=== PATIENT | female | born 1945 | race Caucasian/White ===

== ENCOUNTER → 2023-05-27 16:22 | Outpatient (REF) | payer MEDICARE, SELFPAY ==
[2023-05-27 16:04] LABS: PT 22.6 Sec (11.4-14.6)
== END ==
LOC: OIDL 16:22
PROVIDERS: ATTENDING PHYSICIAN Internal Medicine Hematology & Oncology
DX: D68.62 Lupus anticoagulant syndrome (principal)
CPT/HCPCS: 85610

== ENCOUNTER 2023-08-10 02:47 | Emergency (ER) | payer MEDICARE, SELFPAY ==
[2023-08-10 02:49] VITALS: BP 142/86; BMI 20.5
--- NOTE | 2023-08-10 03:05 | ED.GENMED ---
History of Present Illness
<RANDI Way - Last Filed: 08/10/23 06:10>
General
Chief Complaint: Abdominal Symptoms
Source: patient and family
Exam Limitations: none
Time Seen by Provider: 08/10/23 02:53
Travel History
Have you had any contact with someone who has COVID-19?: No
Do you have any symptoms of coronavirus? Fever > 100 degrees, chills, cough, shortness of breath, sore throat, loss of taste or smell, muscle aches, or headache?: No
History of Present Illness
History of Present Illness:
78 year old female with hx of stage 4 lung CA on hospice BIBA from home for LLQ abdominal pain that began around 1400 Saturday. Per daugther, pt has not had a BM in 2 weeks. 2.5 weeks ago pt had fecal impaction and was administered fleet enemas x2 by
hospice nurse with relief of impaction. At 2 PM Saturday pt woke up with severe abdominal pain. Hospice nurse attempted 2 fleet enemas. She probed the rectum with her finger and pt screamed in pain. Denies fevers/chills, nausea, vomiting. Daughter
called hospice doctor tawnya who states pt needs to go to the ER. Pt is on hospice and is on dilaudid. Daughter states pt is in the final process of dying. She is bed-bound. She is not eating and only and is spoon-fed water. Pt is on home O2, 6L.
Past History
<RANDI Way - Last Filed: 08/10/23 06:10>
Past History
ED Past Medical History: CAD, Cancer (Stage 4 Lung), GERD, HTN, Hypercholesterolemia, Other (Raynauds, Amaurosis fugax 2018, Hiatal hernia, Esophageal stricture with dilatation, Bullous pemphigoid, visual acuity in left eye 20/400), Other
(Osteopenia, pneumonia, rheumatoid arthritis) and Other (Lupus, antiphospholipid ab, irritable bowel, DJD, renal failure, hiatal hernia, cataracts); Negative Renal failure (CKD 3)
ED Past Surgical History: Cardiac (Stent x1, right Carotid stent), Tonsilectomy and Other (Carotid endarterectomy on R, carotid stent on R 2018, subclavian venous stent 2009)
Social History
Tobacco: Former smoker
Alcohol: None
Drug: None
Personal:
Living: alone
Employment: Retired
Family History
Family History: Other (Reviewed and noncontributory)
Review of Systems
<Molly Carlton [facility] - Last Filed: 08/10/23 06:10>
Review of Systems
Allergies reviewed?: Yes
All Other Systems: ROS reviewed and negative except as documented in HPI and ROS
Constitutional: Reports fatigue
EENT: Reports no symptoms
Respiratory: Reports trouble breathing
Cardiac: Reports no symptoms
ABD/GI: Reports abdominal pain, constipated and pain (rectal pain)
: Reports no symptoms
Musculoskeletal: Reports no symptoms
Skin: Reports no symptoms
Neurological: Reports no symptoms
Endocrine: Reports no symptoms
Hematologic/Lymphatic: Reports no symptoms
Psychiatric: Reports no symptoms
Phy Exam
<Molly Carlton [facility] - Last Filed: 08/10/23 06:10>
Physical Exam
Physical Exam:
see physical exam
General Physical Exam
General Skin: warm and dry
General Habitus: elderly and frail
General Mental: alert and other (minimally verbal)
General Hydration: dry mucous membranes
Cardiovascular Exam
Cardiovascular Exam: regular rate/rhythm, no edema, no gallop, no murmur and normal peripheral pulses
Pulmonary Exam
Breath Sounds: Crackles: generalized and Wheeze: generalized
Gastrointestinal Exam
Gastrointestinal Exam: soft, no pulsatile mass and non distended
Palpation: left lower quadrant: Moderate tenderness
Neurological Exam
Neurological Exam: alert, oriented x3 and other (minimally verbal)
Skin Exam
Skin Exam: normal color and warm/dry
Course
<RANDI Way - Last Filed: 08/10/23 06:10>
Orders/Labs/Results
Orders:
Orders
08/10/23 04:34
Enema- Treatment ONCE
Type: Milk of Molasses
08/10/23 06:55
Abdomen Xray - 1 View [CR Abdomen - 1 View] Urgent
Comment:
Reason For Exam: pain
Vital Signs
Initial and Last Documented VS:
Initial Vital Signs
Temp Pulse Resp BP Pulse Ox
97 F 109 26 142/86 94
08/10/23 02:49 08/10/23 02:49 08/10/23 02:49 08/10/23 02:49 08/10/23 02:49
Last Documented Vital Signs
Temp Pulse Resp BP Pulse Ox
98.5 F 114 25 160/50 92
08/10/23 07:11 08/10/23 07:11 08/10/23 07:11 08/10/23 07:12 08/10/23 07:14
<Karen Harp MD - Last Filed: 08/13/23 09:43>
Orders/Labs/Results
Orders:
Orders
08/10/23 04:34
Enema- Treatment ONCE
Type: Milk of Molasses
08/10/23 06:55
Abdomen Xray - 1 View [CR Abdomen - 1 View] Urgent
Comment:
Reason For Exam: pain
Vital Signs
Initial and Last Documented VS:
Initial Vital Signs
Temp Pulse Resp BP Pulse Ox
97 F 109 26 142/86 94
08/10/23 02:49 08/10/23 02:49 08/10/23 02:49 08/10/23 02:49 08/10/23 02:49
Last Documented Vital Signs
Temp Pulse Resp BP Pulse Ox
98.5 F 114 25 160/50 92
08/10/23 07:11 08/10/23 07:11 08/10/23 07:11 08/10/23 07:12 08/10/23 07:14
<RANDI Way - Last Filed: 08/10/23 06:10>
MDM/Problems Addressed
Differential Diagnosis Includes:
constipation
MDM/Problems Addressed:
78 year old female BIBA from home for LLQ abdominal pain x 1 day and constipation x2 weeks.
Chronic conditions affecting care: CAD, Arrhythmia (afib), Cancer (stage 4 lung CA) and Other (on hospice)
<RANDI Way - Last Filed: 08/10/23 06:10>
*Critical Care Note
Total Time (30-74mins, 75-104mins- exclusive of procedures): Not Applicable
ED Attending Note
<RANDI Way - Last Filed: 08/10/23 06:10>
-
Portions of this chart may have been created with voice recognition software.� Occasional wrong word or��sound alike� substitutions may have occurred due to the inherent limitations of voice recognition software.
<Karen Harp MD - Last Filed: 08/13/23 09:43>
ED Attending Note
Patient seen and examined by attending physician: Yes
I performed the substantive portion of visit, reviewed & personally made and approve the management plan that is documented in note by myself or MARJAN.: Yes
ED Attending Note:
78 yr old female with hx of lung ca, on hospice, has not had a bm in 2 wks. international logistics manager did water enema times 2 yesterday, and attempted manual disimpaction which was extremely uncomfortable for her with minimal results. Tonight patient began to
complain of increasing abdominal pain which prompted her visit here after detention sergeant spoke with hospice physician. Patient is consuming very very small amounts of liquids only over the last few weeks. Daughter is going home right now to get her
pain medication which is compounded and extremely concentrated given her low volume of overall intake. On exam, patient extremely frail cachectic, on nasal cannula. Abd soft, nontender to palpation. On rectal exam, there is alot of stool noted in
vault, semi soft, but very painful for patient. She did not tolerate enema (unable to hold it). I spoke with detention sergeant, [facility] MD (Dr Schumacher) who states that he doesn't have any other suggestions to help with constipation, and recommend
refer to inpt hospice b/c 'daughter can't handle her'. Pts daughter does not want this for her mother. Long d/w daughter and son (Lazarus) via phone weighing options, etc. Pt can't take laxatives by mouth, and disimpaction too painful...agree to
increase frequency of pain meds, return to home, hydrate as best as possible, and consider repeat enema. While an incomplete solution (i.e. not immediate relief of constipation), weighing focus of comfort, this was felt to be best. At family
request, xray obtained. Stool noted distally with air filled loops.
Discharge Plan
Departure
Patient Disposition: Home (Routine Discharge)
Date of Disposition: 08/10/23
Time of Disposition: 07:50
Patient with high blood pressure during this ER visit?: Yes
Condition: Good
Discharge Problem:
Constipation
Instructions: Constipation, Adult (DC), BLOOD PRESSURE
Prescriptions:
No Action
aspirin [Ecotrin Low Strength] 81 MG tablet,delayed release (DR/EC)
81 mg PO DAILY
vitamin B complex 1 TAB tablet
1 tab PO DAILY
simethicone [Gas-X Extra Strength] 125 MG tablet,chewable
125 mg PO DAILYPRN PRN (Reason: gas)
acetaminophen [Tylenol Extra Strength] 500 mg Tablet
1,000 mg PO Q6HPRN PRN (Reason: MILD PAIN)
Visbiome 112.5 billion cell Capsule
1 cap PO DAILY
pantoprazole 40 mg tablet,delayed release (DR/EC)
40 mg PO BID
lidocaine-prilocaine 2.5-2.5 % cream
1 applic topical DAILY PRN (Reason: prior to chemo treatment)
sertraline 100 mg Tablet
100 mg PO DAILY@1999
warfarin [Jantoven] 5 mg Tablet
5 mg PO MO@1899
Patient Comments:
03/20/2023, pt.'s family state that they test their INR on Mondays and that this week they took 5 mg on Saturday (03/18/2023) and will take 2.5 mg for the rest of the week including the following Saturday when they will re-test their INR.
warfarin [Jantoven] 5 mg Tablet
2.5 mg PO DAILY@1899
Patient Comments:
03/20/2023, pt.'s family state that they test their INR on Mondays and that this week they took 5 mg on Saturday (03/18/2023) and will take 2.5 mg for the rest of the week including the following Saturday when they will re-test their INR.
budesonide 0.5 mg/2 mL Suspension For Nebulization
0.5 mg INHALATION R DAILY
budesonide 0.5 mg/2 mL Suspension For Nebulization
0.5 mg INHALATION R BIDPRN PRN (Reason: sob)
ipratropium bromide 0.02 % Solution
2.5 ml INHALATION R TID
valsartan [Diovan] 160 mg Tablet
80 mg PO DAILY
valsartan [Diovan] 40 mg Tablet
40 mg PO DAILY@1999
Saline Nasal 0.65 % Aerosol,[place]
1 spray INTRANASAL BIDPRN PRN (Reason: congestion)
cholecalciferol (vitamin D3) 50 mcg (2,000 unit) Capsule
50 mcg PO DAILY
guaifenesin [Mucinex] 600 mg Tablet Extended Release 12hr
600 mg PO NOON
prednisolone acetate (PF) 1 % Drops,Suspension
1 drp LEFT EYE BID
Patient Comments:
03/20/2023, starting 03/22/2023, pt. will apply 1 drp OU Daily for 2 weeks.
hydroxychloroquine 300 mg Tablet
300 mg PO DAILY
Systane Complete PF 0.6 % Drops
2 drp ophthalmic (eye) TID
Rx Instructions:
03/20/2023, right eye.
Systane Complete PF 0.6 % Drops
2 drp OPHTHALMIC (EYE) BID
Rx Instructions:
03/20/2023, left eye.
Iron Bisglycinate
25 mg PO DAILY
prednisone 10 mg Tablet
10 mg PO MOWEFR@0800
benzonatate 100 mg Capsule
100 mg PO DAILY@2000
Referrals:
Angus Hernandez MD [Family Provider] -
Interventions
Interventions:
*Risk Screen - Suicide Last Done: 08/10/23 02:49
*General Assessment Last Done: 08/10/23 02:49
*Neglect/Abuse Screening Last Done: 08/10/23 02:49
ED- Fall Risk Assessment Last Done: 08/10/23 07:11
*ED COVID-19 Vaccine History Last Done: 08/10/23 02:49
*Nursing Disposition Last Done: 08/10/23 10:06
HH-Nsejsw-Bovwufwbyk Assessment Last Done: 08/10/23 09:30
Discharge Date and Time
Discharge Date/Time: 08/10/23 10:10
Print Language: LAO
[2023-08-10 07:11] VITALS: BP 160/50
[2023-08-10 07:12] VITALS: BP 160/50
--- NOTE | 2023-08-10 07:48 | EDRN ---
the pt was received from previous shift production associate RN, the pt is resting in stretcher in the lowest position, side rails up x2, call thomas within reach, HOB elevated, VS WNL, the pt is currently on 6L NC which the pts daughter who is at the bedside states
the pt is on at all times at home, the pt is going to be discharged to home, transport is being set up for the pt, the pts daughter stated to previous shift production associate RN and this RN that she has Dilaudid PO at the pts bedside that she has been giving to
the pt, Dr. Harp is aware of this, the pt was repositioned in bed for comfort at the request of the pts daughter, warm blankets provided and ice water with a spoon provided per the pts daughters request, will continue to monitor the pt closely
--- NOTE | 2023-08-10 08:56 | EDRN ---
the pts daughter came up to this RN at the nurses station and stated that her mother had a bowel movement, this RN entered the pts room and per the pts daughters request, the daughter assisted in cleaning the pt up, the pt was cleaned up from medium
size soft bowel movement, pad, and brief changed, the pt was repositioned in bed for comfort, will continue to monitor the pt closely
--- NOTE | 2023-08-10 10:04 | EDRN ---
the pts daughter approached this RN at the nurses station and stated that her mother had another bowel movement, this RN with the assistance of the pts daughter cleaned the pt and changed the pt brief and pad, the pts daughter stated that the pt was
having pain on the sacral area and burning, this RN put barrier cream on b/l buttock and sacral area and repositioned the pt on her right side, the pt is resting in stretcher in the lowest position, side rails up x2, call thomas within reach, HOB
elevated, will continue to monitor the pt closely
== END 2023-08-10 10:10 | disposition home or self-care (01) ==
LOC: EMR 02:47
PROVIDERS: EMERGENCY PHYSICIAN Emergency Medicine; FAMILY PHYSICIAN Internal Medicine
DX: K59.00 Constipation, unspecified (principal); I10 Essential (primary) hypertension; Z87.891 Personal history of nicotine dependence; I25.10 Atherosclerotic heart disease of native coronary artery without angina pectoris; C34.90 Malignant neoplasm of unspecified part of unspecified bronchus or lung
CPT/HCPCS: 99283; 74018